=== PATIENT | female | born 1990 | race Caucasian/White ===

== ENCOUNTER 2018-01-30 11:21 | Emergency (ER) | payer BC ==
[2018-01-30] MEDS: KETOROLAC 30 MG INJ IM (12:11)
[2018-01-30] MEDS: DIAZEPAM 2 MG TAB PO (12:30)
== END 2018-01-30 14:13 | disposition home or self-care (01) ==
LOC: FTE 11:21
DX: M79.601 Pain in right arm (principal); R07.9 Chest pain, unspecified
CPT/HCPCS: 71045; 72125; 93005; 99285-25